=== PATIENT | female | born 1975 | race Caucasian/White ===

== ENCOUNTER 2018-04-30 10:01 | Day surgery (SDC) | payer BC, MEDICAID ==
[~2018-04-30 10:01] MED LIST: PROPOFOL 200 MG INJ
[2018-04-30] MEDS ORDERED: FENTAnyl 50 MCG/ML VIAL (14:06)
[2018-04-30] MEDS ORDERED: MIDAZOLAM 1 MG/ML 2 ML INJ ×2 (14:06)
== END 2018-04-30 15:12 | disposition home or self-care (01) ==
LOC: GIL 10:01
DX: K92.1 Melena (principal); K64.4 Residual hemorrhoidal skin tags
CPT/HCPCS: 45378